=== PATIENT | male | born 1965 ===

== ENCOUNTER 2017-01-08 05:11 | Day surgery (SDC) | payer BC ==
[2017-01-08] VITALS (8 sets, daily range): BP systolic 99–115; BP diastolic 59–71
[~2017-01-08] VITALS: Ht 180.3 cm; Wt 81.6 kg
[2017-01-08] MEDS ORDERED: ABACAVIR-LAMIV1 EAC1 PO (06:07)
[2017-01-08] MEDS ORDERED: MEXILETINE HCL150 MG PO (06:07)
[2017-01-08] MEDS ORDERED: SOTALOL240 MG PO (06:07)
[2017-01-08] MEDS ORDERED: REYATAZ200 MG ORAL (06:07)
[2017-01-08] MEDS ORDERED: Bupivacaine w/Epi 0.5% 30ml Vial INJ ONE (06:48)
--- NOTE | 2017-01-08 06:54 | Anethesia Preoperative Eval ---
Anesthesia Pre-op PMH/ROS General Date of Evaluation: Jan 08, 2017 Time of Evaluation: 07:00 Anesthesiologist: simon ASA Score: ASA 3 Mallampati Score Class I : Soft palate, uvula, fauces, pillars visible Class II: Soft palate, uvula, fauces visible Class III: Soft palate, base of uvula visible Class IV: Only hard plate visible Mallampati Classification: Class III Surgeon: Ludy Diagnosis: Soft pubic tissue mass Surgical Procedure: Excision of soft tissue mass Anesthesia History: none Family History: no anesthesia problems Allergies: Coded Allergies: MORPHINE (Verified Allergy, Severe, 01/08/17) severe agitation Medications: see eMAR Past Medical History Cardiovascular: Reports: arrhythmia - AICD left upper chest/ Device Interrogated 2 weeks ago, Denies: CAD, HTN, VT, other, valve dz Gastrointestinal/Genitourinary: Denies: CRI, ESRD, GERD, other Neurologic/Psychiatric: Denies: CVA, TIA, dementia, depression/anxiety, other Endocrine: Denies: DM, hypothyroidism, other, steroids HEENT: Denies: [place] (L), [place] (R), cataract (L), cataract (R), glaucoma, other Hematology/Immune: Denies: DVT, anemia, bleeding disorder, other Musculoskeletal/Integumentary: Denies: DDD, DJD, OA, RA, edema, other PMH Narrative: HIV PSxH Narrative: AICD Placement Anesthesia Pre-op Phys. Exam Physician Exam Last Vital Signs Date Time Temp Pulse Resp B/P Pulse Ox O2 Delivery O2 Flow Rate FiO2 01/08/17 06:12 97.0 65 20 105/62 96 Room Air Constitutional: NAD Neurologic: CN 2-12 intact Cardiovascular: RRR Respiratory: CTA Gastrointestinal: S/NT/ND Airway Exam Mallampati Classification 3 Teeth: missing Dentures: no lower, no upper Anesthesia Pre-op A/P Studies Pre-op Studies: EKG - sr Risk Assessment & Plan Plan: General LMA Status Change Before Surgery: EMANUEL Jaquez CRNA Jan 08, 2017 06:54
[2017-01-08] MEDS ORDERED: Midazolam 2mg/2ml Inj ONE (07:00)
[2017-01-08] MEDS ORDERED: Metoclopramide 10mg/2ml Inj ONE (07:00)
[2017-01-08] MEDS ORDERED: NS Irrig 1000ml ONE (07:00)
[2017-01-08] MEDS ORDERED: Lidocaine 1% MPF 10mg/ml 5ml ONE (07:00)
[2017-01-08] MEDS ORDERED: LR 1000ml ONE (07:00)
[2017-01-08] MEDS ORDERED: fentaNYL 100 mcg/2 mL IV ONE (07:00)
[2017-01-08] MEDS ORDERED: Meperidine 25mg/0.5ml Inj (FOR RIGORS ONLY) IV PRN (07:00)
[2017-01-08] MEDS ORDERED: Sterile Water Irrig 1000ml IRRIG ONE (07:00)
[2017-01-08] MEDS ORDERED: fentaNYL 100 mcg/2 mL IV PRN (07:00)
[2017-01-08] MEDS ORDERED: Metoclopramide 10mg/2ml Inj IVP PRN (07:00)
[2017-01-08] MEDS ORDERED: Propofol 10mg/ml 20ml IV ONE (07:00)
--- NOTE | 2017-01-08 07:55 | Pre-Procedure Note/Attestation ---
Pre-Procedure Note/Attestation Complete Prior to Procedure Procedure Narrative: excision suprapubic soft tissue mass Indications for Procedure Pre-Operative Diagnosis: suprapubic mass (soft tissue) Attestation I attest that I discussed the nature of the procedure; its benefits; risks and complications; and alternatives (and the risks and benefits of such alternatives ), prior to the procedure, with the patient (or the patient's legal termite control service representative). I attest that, if there was a reasonable possibility of needing a blood transfusion, the patient (or the patient's legal termite control service representative) was given the [facility] standardized written summary, pursuant to the Jose Oli Blood Safety Act ([place] Health and Safety Code # 1645, as amended). I attest that I re-evaluated the patient just prior to the surgery and that there has been no change in the patient's H&P, except as documented below: WENDY SNOW Jan 08, 2017 07:55
--- NOTE | 2017-01-08 07:58 | Immediate Post-Op Evaluation ---
Immediate Post-Op Evalulation Immediate Post-Op Evalulation Procedure: soft tissue mass excision Date of Evaluation: Jan 08, 2017 Time of Evaluation: 07:50 IV Fluids: 300 Blood Pressure Systolic: 115 Blood Pressure Diastolic: 58 Pulse Rate: 57 Respiratory Rate: 14 O2 Sat by Pulse Oximetry: 99 Temperature (Fahrenheit): 97.9 Nausea: No Vomiting: No Complications none Patient Status: awake, reacts, patent Hydration Status: adequate Drug: ancef Given Within 1 Hr of Incision: Yes Time Given: 07:20 EMANUEL MAYA CRNA Jan 08, 2017 07:58
--- NOTE | 2017-01-08 08:54 | 48 Hour Post Anesthesia Eval ---
Post Anesthesia Evaluation Procedure: soft tissue mass excision Date of Evaluation: Jan 08, 2017 Time of Evaluation: 08:54 Blood Pressure Systolic: 110 0: 69 Pulse Rate: 70 Respiratory Rate: 14 O2 Sat by Pulse Oximetry: 100 Airway: patent Nausea: No Vomiting: No Hydration Status: adequate Cardiopulmonary Status: stable Mental Status/LOC: patient returned to baseline Post-Anesthesia Complications: none Follow-up care needed: N/A EMANUEL MAYA CRNA Jan 08, 2017 08:54
[2017-01-08] MEDS ORDERED: D5 1/2NS 1,000 ML IV SCH (13:01)
[2017-01-08] MEDS ORDERED: HYDROmorphone 1mg/ml Carpuject SUBQ PRN (13:01)
--- NOTE | 2017-01-08 16:15 | Operative Note - Dictated ---
DATE OF OPERATION: 01/08/2017 SURGEON: Neo Sethi M.D. REFRIGERATION MANAGER: None. ANESTHESIOLOGIST: Colleen Mayorga, nurse general expeditor. PREOPERATIVE DIAGNOSIS: Right inguinal hernia. POSTOPERATIVE DIAGNOSIS: Right inguinal hernia with enlarged right inguinal lymph nodes. NAME OF OPERATION: 1. Repair of right inguinal hernia with mesh. 2. Right inguinal lymph node biopsy. FINDINGS AND INDICATIONS: The patient is a 51-year-old, very muscular male with a history of HIV on testosterone, who developed a right groin hernia bulge with some pain and aching sensation over the last few weeks. The patient lifts very heavy weights athletically, and I explained to him the indications, risks, benefits, possible complications with repair of the hernia and he consented. At surgery indeed there was a very weak floor with advance of direct inguinal hernia, very prominent lipomas of the cord, but no obvious indirect inguinal hernia sac, and careful dissection did not reveal a femoral hernia. Therefore, it was all the indirect hernia which was repaired as described. Of interest is that there was the right inguinal adenopathy with a 1.4-1.5 centimeter lymph nodes biopsied as described. PROCEDURE: With the patient lying in the supine position on the operating table, under general anesthesia with the entire right lower abdominal and groin regions prepped and draped in usual sterile fashion with Betadine, an oblique incision was carried out in the pubic area. Subcutaneous tissues were divided. The external oblique aponeurosis was identified and opened in direction of its fibers. The ilioinguinal nerve was then identified and left intact. The cord was isolated and skeletonized with a moderate size lipoma of the cord, but no obvious indirect inguinal hernia sac. The pelvic floor had a moderate-sized direct inguinal hernia, which was imbricated with 2-0 Vicryl material and then the pelvic floor was reinforced by approximating the shelving edge of the inguinal ligament to the combined aponeurosis of the internal oblique and transversus abdominis muscles using a continuous 2-0 Prolene suture to the mesh creating a nice tension-free repair. A slit was made on the lateral aspect of the mesh to allow the cord structures to go through and the Prolene suture was snugly ligated recreating a nice internal ring. The area was irrigated. Hemostasis was adequate. The cord and the nerve were then double checked and replaced anatomically, and at this point, the femoral hernia area was double checked to make absolutely sure there was none there, which there was not, however, there was an enlarged lymph node, which was carefully dissected free and hemoclips used to control small lymphatics and vessels and specimen was removed and sent to pathology. The area was irrigated, hemostasis was double checked, which was adequate with the cautery and then the edges were approximated with subcutaneous 3-0 Vicryl suture and the skin with 4-0 Vicryl subcuticular sutures and Steri-Strips. Marcaine 0.5% with epinephrine 15 mL was injected for long-acting local anesthetic. The patient tolerated the procedure well. Estimated blood loss was less than 5 mL. Sponge and needle counts were correct. He went to the recovery room in stable condition. Neo Sethi M.D. DR: ANA PAULA/ JOB#: [id number] CC:
--- NOTE | 2017-01-12 16:15 | Operative Note - Dictated ---
DATE OF OPERATION: 01/08/2017 SURGEON: Neo Sethi M.D. PLATFORM POWER TECHNICIAN: None. ANESTHESIA: A 1% local Xylocaine with epinephrine plus moderate sedation with LMA. ANESTHESIOLOGIST: Tierra Macias CRNA. ANESTHESIA: General. NAME OF OPERATION: Excision of right pubic soft tissue mass. FINDINGS AND INDICATIONS: The patient is a 51-year-old male with a history of progressively enlarging right pubic mass just above the penis, which had been observed for a while, and it was bigger before, but now it is approximately 2 cm plus in diameter, quite sticky. At surgery indeed, a very obvious sebaceous cyst was found in the deep pubic region at the base of the penis. The procedure was done uneventfully as described. DESCRIPTION OF PROCEDURE: With the patient lying in the supine position on the operating table, under local anesthesia plus IV sedation, the entire genital region prepped and draped in usual sterile fashion with Betadine, an incision was made over the soft tissue mass. Subcutaneous tissues were divided, the mass was then encircled in its entirety by blunt and sharp means obtaining hemostasis with the cautery. The mass was removed and sent to pathology. The area was irrigated. Hemostasis was adequate. The subcutaneous tissues were approximated with 3-0 Vicryl suture and the skin with 4-0 Vicryl subcuticular sutures and Steri-Strips. The patient tolerated the procedure well and went to recovery room in stable condition. Neo Sethi M.D. DR: GERONIMO JOB#: [id number] CC: [id number]
== END 2017-01-08 09:20 | disposition home or self-care (01) ==
LOC: SUR 05:11
DX: L72.0 Epidermal cyst (principal); I47.2 Ventricular tachycardia; I42.9 Cardiomyopathy, unspecified; Z95.810 Presence of automatic (implantable) cardiac defibrillator
CPT/HCPCS: 11402; 12031; J0690; J2250; J2405; J2704; J2765; J3010; J7120; 94003; 94150